=== PATIENT | female | born 1935 | race Caucasian/White ===

== ENCOUNTER 2017-03-13 20:20 | Emergency (ER) | payer MEDICARE, BC ==
[~2017-03-13] VITALS: Ht 157.5 cm; Wt 147.0 kg
[2017-03-13] MEDS ORDERED: ZOCOR20 M1 PO (20:42)
[2017-03-13] MEDS ORDERED: ZESTRIL10 M1 PO (20:42)
[2017-03-13] MEDS ORDERED: LEVOTHYROXIN75 MC1 PO (20:43)
[2017-03-13] MEDS ORDERED: LUMIGAN0.01 % (20:44)
[2017-03-13] MEDS ORDERED: ASPIRIN 81 LOW81 MG (20:44)
[2017-03-13 21:25] LABS: HEMATOCRIT 48.3 % (37.0-47.0); HEMOGLOBIN 16.2 g/dl (12.0-16.0); IMMATURE GRANULOCYTES 0.7 % (0.0-1.0); MEAN CELL VOLUME 98.8 fL CALC (80.0-100.0); MEAN CORPUSCULAR HGB 33.1 pG CALC (26.0-32.0); MEAN CORPUSCULAR HGB CONC 33.5 g/L CALC (32.0-36.0); NEUT# 9.71 thou/uL (2.00-7.15); RED BLOOD COUNT 4.89 mill/uL (4.20-5.60); RED CELL DISTRI WIDTH 13.6 % (11.5-15.5)
[2017-03-13 22:02] LABS: ALBUMIN 4.1 g/dL (3.2-5.0); ALKALINE PHOSPHATASE 106 u/l (38-126); AMYLASE 64 u/l (30-110); ANION GAP 20 (6-22 (CALC)); BILIRUBIN, TOTAL 0.8 mg/dL (0.0-1.4); BUN 16 mg/dL (8-23); BUN/CREATININE RATIO 16 (12-20 (CALC)); CALCIUM 9.8 mg/dL (8.4-10.2); CARBON DIOXIDE 24 mmol/l (22-30); CHLORIDE 104 mmol/l (95-108); GFR 53 ML/MIN (>=60 (CALC)); GFR FOR AFR.AMER. > 60 ML/MIN (>=60 (CALC)); GLUCOSE 145 mg/dL (82-115); LIPASE 84 u/l (23-300); POTASSIUM 4.9 mmol/l (3.5-5.1); SGOT/AST 50 u/l (9-36); SGPT/ALT 43 u/l (11-66); SODIUM 143 mmol/l (137-146); TOTAL PROTEIN 7.4 g/dL (6.3-8.2)
[2017-03-13 22:15] LABS: INFLUENZA A NONE DETECTED (NONE DETECT); INFLUENZA B NONE DETECTED (NONE DETECT)
[2017-03-14 01:10] VITALS: BP 151/91
== END 2017-03-14 01:10 | disposition home or self-care (01) ==
LOC: ED 20:20
PROVIDERS: Emergency Medicine
DX: R11.2 Nausea with vomiting, unspecified (principal); R19.7 Diarrhea, unspecified; R50.9 Fever, unspecified; I10 Essential (primary) hypertension; E78.00 Pure hypercholesterolemia, unspecified

== ENCOUNTER 2023-06-27 16:26 | Observation (INO) | payer MEDICARE, BC ==
[~2023-06-27] VITALS: Ht 157.5 cm; Wt 114.3 kg
[2023-06-27] VITALS (10 sets, daily range): BP systolic 117–143; BP diastolic 53–66
[~2023-06-27 16:26] MED LIST: ASPIRIN 81 LOW81 MG; FOLIC ACID1 M1 PO; LASIX 40 MG TAB40 MG PO; LEVOTHYROXIN75 MC1 PO; LIDOCAINE PAIN RE4 % TD; LISINOPRIL20 M1 PO; LUMIGAN0.01 %; NYAMYC100000 UNI TOP; VITAMIN B-12500 MCG PO; ZESTRIL10 M1 PO; ZOCOR20 M1 PO; [UNRECOGNIZED DRUG - OTHER] IV
[2023-06-27 17:10] LABS: BASO% 0.8 % (0-3); EOS% 3.9 % (0-8); IMMATURE GRANULOCYTES 0.8 % (0.0-5.0); MEAN CELL VOLUME 100.9 fL CALC (80.0-100.0); MEAN CORPUSCULAR HGB 33.4 pG CALC (26.0-32.0); MEAN CORPUSCULAR HGB CONC 33.1 g/dL CAL (32.0-36.0); MONO% 6.6 % (2-13); NEUT# 5.81 thou/uL (2.00-7.15); NEUT% 59.9 % (42-76); RED BLOOD COUNT 4.67 mill/uL (4.20-5.60); RED CELL DISTRI WIDTH 13.1 % (11.5-15.5)
[2023-06-27 17:14] LABS: HEMATOCRIT 47.1 % (37.0-47.0); HEMOGLOBIN 15.6 g/dl (12.0-16.0)
[2023-06-27 17:24] LABS: INTERNATIONAL NORMALIZED RATIO 1.2 RATIO (0.7-1.3); PROTHROMBIN TIME 11.6 SECONDS (9.0-12.5)
[2023-06-27 17:26] LABS: BILIRUBIN, TOTAL 0.8 mg/dL (0.02-1.3); CREATININE 1.4 mg/dL (0.5-1.0); POTASSIUM 4.4 mmol/l (3.5-5.1)
[2023-06-27 17:31] LABS: ALBUMIN 3.4 g/dL (3.2-5.0); CHOLESTEROL HDL RATIO 5.9 (<4.4 (CALC)); TOTAL PROTEIN 7.4 g/dL (6.3-8.2)
[2023-06-28 04:08] VITALS: BP 126/45
[2023-06-28 06:30] VITALS: BP 127/59
[2023-06-28 06:31] LABS: URINE BILIRUBIN - DIPSTICK Negative (NEGATIVE); URINE BLOOD DIPSTICK Small (NEGATIVE); URINE GLUCOSE - DIPSTICK Negative (NEGATIVE); URINE KETONE Negative (NEGATIVE); URINE PH 5.5 (4.5-8.0); URINE PROTEIN - DIPSTICK Trace mg/dL (NEG-TRACE); URINE SPECIFIC GRAVITY 1.025; URINE UROBILINOGEN - DIPSTICK 0.2 E.U./dL (0.2)
[2023-06-28 06:34] LABS: URINE COLOR Yellow; URINE LEUK ESTERASE Moderate (NEGATIVE)
[2023-06-28 06:35] LABS: URINE NITRITE - DIPSTICK Negative (Negative)
[2023-06-28 06:37] LABS: URINE EPITHELIAL CELLS MODERATE EPI/hpf (0-FEW)
[2023-06-28 06:38] LABS: URINE BACTERIA MANY hpf
[2023-06-28 06:40] LABS: HEMATOCRIT 42.4 % (37.0-47.0); HEMOGLOBIN 14.6 g/dl (12.0-16.0); MEAN CELL VOLUME 99.8 fL CALC (80.0-100.0); MEAN CORPUSCULAR HGB 34.4 pG CALC (26.0-32.0); MEAN CORPUSCULAR HGB CONC 34.4 g/dL CAL (32.0-36.0); RED BLOOD COUNT 4.25 mill/uL (4.20-5.60); RED CELL DISTRI WIDTH 13.4 % (11.5-15.5)
[2023-06-28 07:08] LABS: ALKALINE PHOSPHATASE 208 u/l (38-126); ANION GAP 10 (6-22 (CALC)); BILIRUBIN, TOTAL 0.9 mg/dL (0.02-1.3); BUN 19 mg/dL (8-23); BUN/CREATININE RATIO 19 (12-20 (CALC)); CALCULATED LDLCHOLESTEROL 96 mg/dL (62-129 (CALC)); CARBON DIOXIDE 24 mmol/l (22-30); CHLORIDE 109 mmol/l (95-108); CHOLESTEROL HDL RATIO 4.4 (<4.4 (CALC)); GFR FOR AFR.AMER. > 60 ML/MIN (>=60 (CALC)); GFR OTHER RACES 52 ML/MIN (>=60 (CALC)); HDL CHOLESTEROL 39 mg/dL (39.0-59.0); POTASSIUM 4.4 mmol/l (3.5-5.1); SGOT/AST 57 u/l (9-36); SODIUM 139 mmol/l (137-146); TOTAL CHOLESTEROL 173 mg/dl (0-199); TOTAL TRIGLYCERIDES 188 mg/dl (0-149); VLDL CHOLESTROL 38 mg/dl (0-48 (CALC))
[2023-06-28 07:19] LABS: ALBUMIN 2.6 g/dL (3.2-5.0)
[2023-06-28 10:56] VITALS: BP 102/50
[2023-06-28 12:10] VITALS: BP 132/55
[2023-06-28 15:21] VITALS: BP 139/47
[2023-06-28 19:16] VITALS: BP 130/41
[2023-06-29 00:42] VITALS: BP 130/44
[2023-06-29 04:33] VITALS: BP 137/52
[2023-06-29 05:17] LABS: BASO% 0.7 % (0-3); EOS% 11.5 % (0-8); HEMATOCRIT 40.2 % (37.0-47.0); HEMOGLOBIN 13.5 g/dl (12.0-16.0); IMMATURE GRANULOCYTES 0.5 % (0.0-5.0); LYMPH% 39.1 % (15-41); MEAN CELL VOLUME 100.8 fL CALC (80.0-100.0); MEAN CORPUSCULAR HGB 33.8 pG CALC (26.0-32.0); MEAN CORPUSCULAR HGB CONC 33.6 g/dL CAL (32.0-36.0); MONO% 8.4 % (2-13); NEUT# 3.37 thou/uL (2.00-7.15); NEUT% 39.8 % (42-76); RED BLOOD COUNT 3.99 mill/uL (4.20-5.60); RED CELL DISTRI WIDTH 13.7 % (11.5-15.5)
[2023-06-29 05:38] LABS: ALBUMIN 2.5 g/dL (3.2-5.0); BILIRUBIN, TOTAL 0.8 mg/dL (0.02-1.3); CREATININE 1.1 mg/dL (0.5-1.0); POTASSIUM 4.2 mmol/l (3.5-5.1); TOTAL PROTEIN 5.6 g/dL (6.3-8.2)
[2023-06-29 06:46] VITALS: BP 118/34
[2023-06-29 07:51] VITALS: BP 118/34
[2023-06-29 10:28] VITALS: BP 114/47
[2023-06-29] MEDS ORDERED: ATORVASTATIN CA40 MG PO (10:38)
[2023-06-29] MEDS ORDERED: ASPIRIN81 MG PO (10:38)
[2023-06-29] MEDS ORDERED: OMNICEF300 MG PO (10:38)
[2023-06-29 12:09] VITALS: BP 114/47
== END 2023-06-29 14:27 ==
LOC: ED 16:26 → ED-I 17:37 → ED 17:49 → ED-I 17:50 → MS2 17:50
PROVIDERS: Family Medicine; Nurse Practitioner Family; ADMIT Student in an Organized Health Care Education/Training Program; ATTEND Student in an Organized Health Care Education/Training Program
DX: R55 Syncope and collapse (principal); R29.810 Facial weakness; H57.09 Other anomalies of pupillary function; N30.00 Acute cystitis without hematuria; N17.9 Acute kidney failure, unspecified; I87.8 Other specified disorders of veins; I10 Essential (primary) hypertension; M17.11 Unilateral primary osteoarthritis, right knee; E78.5 Hyperlipidemia, unspecified; E03.9 Hypothyroidism, unspecified; I89.0 Lymphedema, not elsewhere classified; E66.01 Morbid (severe) obesity due to excess calories; H40.9 Unspecified glaucoma; Z68.43 Body mass index [BMI] 50.0-59.9, adult; Z91.81 History of falling
CPT/HCPCS: J1650